=== PATIENT | female | born 1995 ===

== ENCOUNTER → 2021-05-06 09:41 | Outpatient (CLI) | payer OTHER, SELFPAY ==
[2021-05-06 10:55] LABS: HCG Quantitative /Beta subunit 74.2 mIU/mL
== END ==
PROVIDERS: Referring Provider Obstetrics & Gynecology; Visit Provider Obstetrics & Gynecology
DX: N91.2 Amenorrhea, unspecified (principal)
CPT/HCPCS: 36415; 84702

== ENCOUNTER → 2021-05-08 11:02 | Outpatient (CLI) | payer OTHER, SELFPAY ==
[2021-05-08 13:06] LABS: HCG Quantitative /Beta subunit 148.6 mIU/mL
== END ==
PROVIDERS: Referring Provider Obstetrics & Gynecology; Visit Provider Obstetrics & Gynecology
DX: N91.2 Amenorrhea, unspecified (principal)
CPT/HCPCS: 36415; 84702

== ENCOUNTER 2021-05-11 13:12 | Emergency (ER) | payer OTHER, SELFPAY ==
[2021-05-11 13:16] VITALS: BP 145/99; PULSE 89; RESP 16; TEMP 36.6; O2SAT 100; BMI 36.8
--- NOTE | 2021-05-11 13:49 | ED.URI ---
HPI - URI/Sore Throat <NEVAHE Duvall - Last Filed: 05/11/21 17:00> General Chief Complaint: Upper Respiratory Symptoms Stated Complaint: Thinks Sinus infection Time Seen by Provider: 05/11/21 13:41 History of Present Illness HPI Narrative: Patient is a 26-year-old female who presents to the emergency department with 1 week of congestion, itchy eyes, nasal discharge went from yellow to clear, patient states she is 6 weeks today, with concern of having brown vaginal discharge for 2 weeks. She reports that her last HCG was 140, previously 70 for, in her OBGYN told her that her HCG was too low to have a ultrasound done. Patient denies any abdominal pain, she states nausea vomiting sometimes but could be related to her morning sickness, she has a ultrasound scheduled for May 20, patient denies any mucus discharge, or large clots, she has a history of a miscarriage last year, and she has complained of some low back pain. She states she has been taking Tylenol at home as needed for a sore throat, she has also taken Unisom at night to help her sleep. Patient denies any fever, shortness of breath, chest pain, diarrhea or constipation, no recent emesis. Patient is concerned that she might be miscarrying again, and she has notified her OBGYN Dr. Parham about her vaginal discharge and they are aware. Related Data Allergies Allergy/AdvReac Type Severity Reaction Status Date / Time No Known Drug Allergies Allergy Verified 05/11/21 13:42 Review of Systems <NEVAEH Duvall - Last Filed: 05/11/21 17:00> Review of Systems Narrative: General: denies fever, chills Head/Neck: endorses intermittent headache, neck pain Eyes: denies visual changes, eye pain Cardio: denies chest pain, palpitations Respiratory: denies shortness of breath, cough GI: denies abdominal pain, nausea, vomiting, or diarrhea : denies dysuria, hematuria MSK: denies joint pain, muscle weakness Skin: denies rash, itching Neuro: denies numbness, tingling Exam <NEVAEH Duvall - Last Filed: 05/11/21 17:00> Narrative Exam Narrative: Independently reviewed vitals signs and nursing notes. General: Awake, alert, nontoxic, no cardiorespiratory distress Head/Neck: Atraumatic, neck full range of motion Eyes: EOMI, conjunctiva normal Nose: nares patent, mild rhinorrhea Mouth/Throat: moist mucus membranes, posterior pharynx normal, no oral lesions Cardio: Regular rate and rhythm, no peripheral edema Respiratory: respirations unlabored without wheezing, stridor, or rales. No retractions. GI: Abdomen soft, nontender MSK: Moves all extremities, neurovascularly intact Skin: Normal capillary refill, no rash Neuro: Normal speech and cognition, normal gait Initial Vital Signs Initial Vital Signs: Vital Signs Temperature 97.9 F 05/11/21 13:16 Pulse Rate 89 05/11/21 13:16 Respiratory Rate 16 05/11/21 13:16 Blood Pressure 145/99 H 05/11/21 13:16 Pulse Oximetry 100 05/11/21 13:16 <Guero Duong DO - Last Filed: 05/12/21 08:34> Initial Vital Signs Initial Vital Signs: Vital Signs Temperature 97.9 F 05/11/21 13:16 Pulse Rate 89 05/11/21 13:16 Respiratory Rate 16 05/11/21 13:16 Blood Pressure 145/99 H 05/11/21 13:16 Pulse Oximetry 100 05/11/21 13:16 Course <NEVAEH Duvall - Last Filed: 05/11/21 17:00> Orders Ordered: ED Orders 05/11/21 14:25 HCG Quantitative /Beta subunit Stat Vital Signs Vital signs: Vital Signs - 8 hr 05/11/21 13:16 05/11/21 15:58 Temperature 97.9 F Pulse Rate 89 80 Respiratory Rate 16 16 Blood Pressure 145/99 H 138/88 Pulse Oximetry 100 97 <Guero Duong DO - Last Filed: 05/12/21 08:34> Orders Ordered: ED Orders 05/11/21 14:25 HCG Quantitative /Beta subunit Stat Vital Signs Vital signs: Vital Signs - 8 hr 05/11/21 13:16 05/11/21 15:58 Temperature 97.9 F Pulse Rate 89 80 Respiratory Rate 16 16 Blood Pressure 145/99 H 138/88 Pulse Oximetry 100 97 MDM - URI/Sore Throat <NEVAEH Duvall Last Filed: 05/11/21 17:00> Lab Data Labs: Lab Results 05/11/21 Range/Units 14:25 HCG, Quant 327 mIU/mL MDM Narrative Medical decision making narrative: 26-year-old female presents to the emergency department for concern of sinus infection with complaint of nasal congestion, laryngitis, cough, and occasional headaches for 1 week. She has been afebrile, exam is reassuring that this is not a sinus infection at this time, she does not have any tenderness over her sinuses. She does not have a productive cough, she has some postnasal drip with rhinorrhea. She tells me she is approximately 6 weeks but has been having brown vaginal discharge for about 2 weeks. She states her last HCG had gone up appropriately but she does not know if she is having a miscarriage or not. She states she has a upcoming ultrasound on May 20 as she was told by her OB that it was too early to do an ultrasound at 5 weeks. I recheck her hCG today which was 327 today, on 05/08 it was 148.6, on 05/06 it was 74.2. Her hCG seems to be increasing as expected and doubling every 2-3 days. Because patient has a benign abdominal exam, without abdominal pain, without bright red bleeding, without any bloody clot discharge I recommend she follow-up with her OBGYN as scheduled and return to the emergency department for any new or worsening symptoms including abdominal pain, fever, pelvic pain, or any other new concerning symptoms. I also told her if her symptoms persist another 3 or 4 days to return to the emergency department or her PCP for another examination. It appears to be a viral upper respiratory illness at this time without indication for antibiotics. My differential also includes bronchitis, ectopic , miscarriage. Patient is appropriate and amenable to discharge home. Vital signs are stable on repeat examination is unremarkable. Patient has been informed of results. Patient has been given strict return to ER precautions for any new or worsening symptoms. Patient understands to follow up closely with outpatient providers as instructed. Patient understands plan and agrees to discharge home. All questions and concerns answered at this time. <Guero Duong, - Last Filed: 05/12/21 08:34> Lab Data Labs: Lab Results 05/11/21 Range/Units 14:25 HCG, Quant 327 mIU/mL Discharge Plan Departure Patient Disposition: Home Clinical Impression: Vaginal discharge, bloody Upper respiratory infection Qualifiers: URI type: acute laryngitis Qualified Code(s): J04.0 - Acute laryngitis Qualifiers: Weeks of gestation: less than 8 weeks Qualified Code(s): Z3A.01 - Less than 8 weeks gestation of Instructions: Laryngitis, Common Cold Activity Restrictions/Additional Instructions: *You have been diagnosed with and upper respiratory illness which is most likely viral and does not need antibiotics at this time. Your hCG today is 327, on 05/08 it was 148.6, on 05/06/2021 it was 74.2. It appears that it is doubling every 2-3 days as it should. Your brown vaginal discharge for the last 2 weeks is a bit concerning however it is too early to know if this is affecting the or not. Please go to your ultrasound appointment on May 20, and please return to the emergency department if you develop any bright red bleeding, any abdominal pain, a fever, muscle spasms, or a large bloody clot or with your vaginal discharge. I will send a copy of this chart to Dr. Parham so that they can see your results. *What to do: *Please continue to take your regular medications as directed. [ ] New medication prescriptions sent to your pharmacy: [ ] [ ] New medication written as a paper prescription [x ] No new medications given *Please follow up with your primary care provider in 2-3 days, call for an appointment. Let them know you were seen in the Emergency Department and that we ask that you be seen in follow up. We will electronically transmit a record of today's note if your PCP is in our system *If you do not have a primary care provider please contact the [facility] Resource line at [phone]. They will ask some questions about your medical history and help get you set up with a doctor in the community. *Return to Emergency Department if you should have any new, worsening or concerning symptoms, such as [fever greater than 101F, chills, worsening pain, persistent vomiting or other bothersome symptoms] Referrals: Zuhair Parham MD [Physician] - 5-7 days <Guero Duong DO - Last Filed: 05/12/21 08:34> Cosign ED Attending Larsature Attestation: I was immediately available in the department for consultation. This documentation has been reviewed and I agree with assessment and plan. Supervised by Guero Duong DO
[2021-05-11 15:22] LABS: HCG Quantitative /Beta subunit 327 mIU/mL
[2021-05-11 15:58] VITALS: BP 138/88; PULSE 80; RESP 16; O2SAT 97
== END 2021-05-11 15:59 | disposition home or self-care (01) ==
PROVIDERS: Emergency Provider Nurse Practitioner Critical Care Medicine
DX: O26.891 Other specified pregnancy related conditions, first trimester (principal); J04.0 Acute laryngitis; Z3A.01 Less than 8 weeks gestation of pregnancy
CPT/HCPCS: 36415; 84702; 99283

== ENCOUNTER → 2021-05-15 10:54 | Outpatient (CLI) | payer OTHER, SELFPAY ==
[2021-05-15 12:18] LABS: Add Manual Diff / Slide Review NO; Basophils Absolute Auto 0 /uL (0-100); Basophils Percent Auto 0.4 % (0-2); Eosinophils Absolute Auto 100 /uL (0-450); Eosinophils Percent Auto 0.6 % (2-4); Hematocrit 37.7 % (36-46); Hemoglobin 12.7 g/dL (12.0-16.0); Lymphocytes Absolute Auto 2800 /uL (1100-4500); Lymphocytes Percent Auto 30.8 % (25-40); Mean Corpuscular HGB Conc 33.8 % (30-36); Mean Corpuscular Hemoglobin 31.5 PG (26-34); Mean Corpuscular Volume 93.4 fL (80-100); Monocytes Absolute Auto 700 /uL (0-900); Monocytes Percent Auto 7.5 % (3-14); Neutrophils Absolute Auto 5500 /uL (1500-7000); Neutrophils Percent Auto 60.7 % (50-75); Platelet Count 451 X10^3/uL (150-400); Red Blood Cell Count 4.04 X10^6/uL (4.0-5.2); Red Cell Distribution Width 13.4 % (11.6-14.8); White Blood Cell Count 9.1 X10^3/uL (4.5-11.0)
[2021-05-15 12:48] LABS: HCG Quantitative /Beta subunit 398.3 mIU/mL
[2021-05-15 13:14] LABS: Hepatitis B Surface Antigen NEGATIVE s/c (NEGATIVE); Rubella Antibody IgG 10.1 IU/mL (>15)
[2021-05-15 13:20] LABS: HIV 1 & 2 Ab/Ag 4th Gen Combo NEGATIVE (NEGATIVE); Hep C Virus Ab w/Reflex Quant NEGATIVE s/c (NEGATIVE)
[2021-05-16 07:43] LABS: RPR Screen Non Reactive (Non Reactive)
[2021-05-16 08:14] LABS: Varicella IgG Antibody <135 index (Immune >165)
== END ==
PROVIDERS: Referring Provider Obstetrics & Gynecology; Visit Provider Obstetrics & Gynecology
DX: O20.9 Hemorrhage in early pregnancy, unspecified (principal)
CPT/HCPCS: 36415; 80055; 84702; 86787; 86803; 86850; 86900; 86901; 87389

== ENCOUNTER 2021-05-19 11:11 | Emergency (ER) | payer OTHER, SELFPAY ==
[2021-05-19 11:19] VITALS: BP 170/95; PULSE 113; RESP 20; TEMP 36.6; O2SAT 99; BMI 37.0
[2021-05-19 11:29] LABS: Add Manual Diff / Slide Review NO; Basophils Absolute Auto 100 /uL (0-100); Basophils Percent Auto 0.5 % (0-2); Eosinophils Absolute Auto 100 /uL (0-450); Eosinophils Percent Auto 0.5 % (2-4); Hematocrit 36.9 % (36-46); Hemoglobin 12.4 g/dL (12.0-16.0); Lymphocytes Absolute Auto 3100 /uL (1100-4500); Mean Corpuscular HGB Conc 33.7 % (30-36); Mean Corpuscular Hemoglobin 31.1 PG (26-34); Mean Corpuscular Volume 92.3 fL (80-100); Monocytes Absolute Auto 1000 /uL (0-900); Monocytes Percent Auto 8.2 % (3-14); Neutrophils Absolute Auto 8200 /uL (1500-7000); Neutrophils Percent Auto 65.8 % (50-75); Platelet Count 408 X10^3/uL (150-400); Red Cell Distribution Width 13.2 % (11.6-14.8); White Blood Cell Count 12.5 X10^3/uL (4.5-11.0)
--- NOTE | 2021-05-19 11:33 | ED.FEMALEGU ---
HPI - Female Genitourinary General Chief complaint: OB/Uterine Contractions Stated complaint: Possible miscarriage/bleeding/cramping Time Seen by Provider: 05/19/21 11:16 History of Present Illness HPI Narrative: 26-year-old female nonsmoker is a at about 7 weeks who presents with her significant other and a chief complaint of lower pelvic cramping and vaginal bleeding with possible passage of tissue over the past day or 2. She is wearing a pad which she has saturated over the past 3-4 hours. She denies any fever or chills. She has had no leakage of fluid. She is not dizzy nor weak or lightheaded. She has had follow-up with Ob recently and they have been tracking her hCG. Related Data Allergies Allergy/AdvReac Type Severity Reaction Status Date / Time No Known Drug Allergies Allergy Verified 05/11/21 13:42 Review of Systems Review of Systems Narrative: GENERAL: Denies chills, fatigue, malaise, fever, sweats. HEENT: Denies sinus pain, ear pain, sore throat, difficulty swallowing, dizziness. RESPIRATORY: Denies dyspnea, cough, wheezing, hemoptysis, sputum. CARDIOVASCULAR: Denies chest pain, palpitations, orthopnea, edema, GASTROINTESTINAL: Denies nausea, vomiting, abdominal pain, diarrhea, constipation, melena. : See HPI MUSCULOSKELETAL: denies weakness, joint pain, or bony pain SKIN: Denies rash, skin lesions, or other NEUROLOGIC: Denies weakness, headache, numbness, change in speech, confusion, seizures, incoordination. PSYCHIATRIC: No concerning psychosocial issues. 12 point review of systems is negative except for those stated above Patient History Medical History Cervical incompetence during in second trimester delivery, delivered Exam Narrative Exam Narrative: GENERAL: [26] year old patient appears stated age. Well-developed patient, in mild distress. Tearful HEAD: Atraumatic. Normocephalic. EYES: Pupils equal round and reactive. Extraocular motions intact. No scleral icterus. No injection or drainage. ENT: Nose without bleeding, purulent drainage. Throat without erythema, tonsillar hypertrophy or exudate. Airway patent. NECK: Trachea midline. Non tender CARDIOVASCULAR: Regular rate and rhythm without murmurs, gallops, or rubs. RESPIRATORY: Clear to auscultation. Breath sounds equal bilaterally. No wheezes, rales, or rhonchi. GASTROINTESTINAL: Abdomen soft, non-tender, nondistended. EXTREMITIES: No edema or joint tenderness. BACK: Nontender without deformity or crepitance. No flank tenderness. NEURO: AOx3. SKIN: No rash or erythema of visible areas Initial Vital Signs Initial Vital Signs: Vital Signs Temperature 97.8 F 05/19/21 11:19 Pulse Rate 113 H 05/19/21 11:19 Respiratory Rate 20 05/19/21 11:19 Blood Pressure 170/95 H 05/19/21 11:19 Pulse Oximetry 99 05/19/21 11:19 Course Orders Ordered: ED Orders 05/19/21 11:22 Beta HCG, Quant [HCG Quantitative /Beta subunit] Stat Complete Blood Count AUTO DIFF Stat Comprehensive Metabolic Panel Stat 05/19/21 12:00 OB <= 14 weeks fetus Stat Vital Signs Vital signs: Vital Signs - 8 hr 05/19/21 11:19 05/19/21 13:28 Temperature 97.8 F Pulse Rate 113 H 90 Respiratory Rate 20 16 Blood Pressure 170/95 H Pulse Oximetry 99 99 MDM - Female Genitourinary Lab Data Result diagrams: 05/19/21 11:22 05/19/21 11:22 Labs: Lab Results 05/19/21 05/19/21 Range/Units 11:22 11:22 WBC 12.5 H (4.5-11.0) X10^3/uL RBC 4.00 (4.0-5.2) X10^6/uL Hgb 12.4 (12.0-16.0) g/dL Hct 36.9 (36-46) % MCV 92.3 (80-100) fL MCH 31.1 (26-34) PG MCHC 33.7 (30-36) % RDW 13.2 (11.6-14.8) % Plt Count 408 H (150-400) X10^3/uL Neut % (Auto) 65.8 (50-75) % Lymph % (Auto) 25.0 (25-40) % [place] % (Auto) 8.2 (3-14) % Eos % (Auto) 0.5 L (2-4) % Baso % (Auto) 0.5 (0-2) % Neut # (Auto) 8200 H (5383-8533) /uL Lymph # (Auto) 3100 (0890-7691) /uL [place] # (Auto) 1000 H (0-900) /uL Eos # (Auto) 100 (0-450) /uL Baso # (Auto) 100 (0-100) /uL Sodium 138 (137-145) mmol/L Potassium 3.8 (3.4-5.1) mmol/L Chloride 102 (98-107) mmol/L Carbon Dioxide 28 (22-32) mmol/L BUN 8 (7-17) mg/dL Creatinine 0.68 (0.52-1.04) mg/dL Estimated GFR > 60.0 (>60) mL/min BUN/Creatinine Ratio 11.8 (6-22) Glucose 93 (70-100) mg/dL Calcium 9.2 (8.4-10.2) mg/dL Total Bilirubin 0.4 (0.2-1.3) mg/dL AST 21 (14-36) IU/L ALT 16 (<35) IU/L Alkaline Phosphatase 54 (38-126) U/L Total Protein 7.5 (6.3-8.2) g/dL Albumin 4.3 (3.5-5.0) g/dL Globulin 3.2 (1.7-4.1) g/dL Albumin/Globulin Ratio 1.3 (1.0-2.8) HCG, Quant 89.7 mIU/mL Imaging Data US - OB: Radiologist's Impression: [place] [address] Ultrasound Report Signed Patient: Geovanna Powers MR#: [id number] : 1995 Acct:[id number] Age/Sex: 26 / F Date of Service: 05/19/21 Loc: ED Accession Number: [id number] ?? Procedure: US OB <= 14 weeks fetus Ordering Provider: Guero Duong D.O. PROCEDURE:? US OB <= 14 WEEKS FETUS ? INDICATIONS:? , bleeding, cramping ? OUTSIDE/PRIOR DATING DATA:? Last menstrual period (LMP):? March 25, 2021 LMP-based estimated date of delivery (LATIA):? December 30, 2021 First dating scan (date and location):? Not applicable Estimated date of delivery (LATIA) from first dating scan:? Not applicable ? TECHNIQUE:? Real-time scanning was performed of the fetus and maternal pelvic organs, with image documentation.? Endovaginal scanning was also performed to better visualize the fetus and maternal ovaries.? ? COMPARISON:? None. ? FINDINGS:? ? Embryo:? No intrauterine identified.? No gestational sac or yolk sac identified. Heart rate:? Not applicable ? Measurement variability in dating:? +/- 4 weeks by LMP, +/- 7 days by mean sac diameter (use before 6 weeks gestation if crown-rump length not able to be measured), +/- 5 days by crown-rump length (up to 8 weeks 6 days gestation), +/- 7 days by crown-rump length (up to 13 weeks 6 days gestation).? ? Maternal organs:? There is a 1.6 x 1.1 x 1.5 centimeter heterogeneous lesion adjacent to the left margin of the uterus and adjacent to the left ovary.? Right ovary is sonographically normal. ? IMPRESSION:? ? 1. No intrauterine identified.? Recommend correlation with serum beta HCG and short-term follow-up obstetrical ultrasound follow-up.? ? 2. There is a small 1.6 x 1.1 x 1.5 centimeter heterogeneous lesion situated between the left margin of the uterus in the left ovary.? Lesion has nonspecific imaging characteristics may represent subserosal uterine fibroid or early ectopic .? Recommend close clinical observation, correlation with serial beta HCG and short-term obstetrical ultrasound follow-up. ? ? ? Dictated by: Imani Dietz MD, PhD on 05/19/2021 at 11:56 ? ? Approved by: Imani Dietz MD, PhD on 05/19/2021 at 12:08 ? Discharge Plan Departure Patient Disposition: Home Clinical Impression: Threatened miscarriage Instructions: DI for Miscarriage Activity Restrictions/Additional Instructions: *You have been diagnosed with [vaginal bleeding and cramping in . Your history and physical exam along with falling out HCG would suggest this is likely a miscarriage in process. *What to do: *Please continue to take your regular medications as directed. [ ] New medication prescriptions sent to your pharmacy: [ ] [ ] New medication written as a paper prescription [ x] No new medications given *Please follow up with your OB provider in 2-3 days, call for an appointment. Let them know you were seen in the Emergency Department and that we ask that you be seen in follow up. They will need to continue to track your labs and probably repeat an ultrasound. *If you do not have a primary care provider please contact the [facility] Resource line at [phone]. They will ask some questions about your medical history and help get you set up with a doctor in the community. *Return to Emergency Department if you should have any new, worsening or concerning symptoms, such as [fever greater than 101 F, shaking chills, worsening pain, bleeding through more than 1 pad per hour or other bothersome symptoms HCG Levels 05/06 74 05/08 148 05/11 327 05/15 298 05/19 89 Referrals: Zuhair Parham MD [Primary Care Provider] -
[2021-05-19 11:41] LABS: Alanine Aminotransferase 16 IU/L (<35); Albumin 4.3 g/dL (3.5-5.0); Albumin Globulin Ratio 1.3 (1.0-2.8); Alkaline Phosphatase 54 U/L (38-126); Aspartate Aminotransferase 21 IU/L (14-36); BUN Creatinine Ratio 11.8 (6-22); Bilirubin Total 0.4 mg/dL (0.2-1.3); Blood Urea Nitrogen 8 mg/dL (7-17); Calcium 9.2 mg/dL (8.4-10.2); Carbon Dioxide 28 mmol/L (22-32); Chloride 102 mmol/L (98-107); Estimated Glomerular Filt Rate > 60.0 mL/min (>60); Globulin 3.2 g/dL (1.7-4.1); Glucose 93 mg/dL (70-100); HEMOLYSIS < 15 (0-50); Potassium 3.8 mmol/L (3.4-5.1); Sodium 138 mmol/L (137-145); Total Protein 7.5 g/dL (6.3-8.2)
[2021-05-19 11:58] LABS: HCG Quantitative /Beta subunit 89.7 mIU/mL
--- NOTE | 2021-05-19 12:00 | DI.US.S_ITS ---
PROCEDURE: US OB <= 14 WEEKS FETUS INDICATIONS: , bleeding, cramping OUTSIDE/PRIOR DATING DATA: Last menstrual period (LMP): March 25, 2021 LMP-based estimated date of delivery (LATIA): December 30, 2021 First dating scan (date and location): Not applicable Estimated date of delivery (LATIA) from first dating scan: Not applicable TECHNIQUE: Real-time scanning was performed of the fetus and maternal pelvic organs, with image documentation. Endovaginal scanning was also performed to better visualize the fetus and maternal ovaries. COMPARISON: None. FINDINGS: Embryo: No intrauterine identified. No gestational sac or yolk sac identified. Heart rate: Not applicable Measurement variability in dating: +/- 4 weeks by LMP, +/- 7 days by mean sac diameter (use before 6 weeks gestation if crown-rump length not able to be measured), +/- 5 days by crown-rump length (up to 8 weeks 6 days gestation), +/- 7 days by crown-rump length (up to 13 weeks 6 days gestation). Maternal organs: There is a 1.6 x 1.1 x 1.5 centimeter heterogeneous lesion adjacent to the left margin of the uterus and adjacent to the left ovary. Right ovary is sonographically normal. IMPRESSION: 1. No intrauterine identified. Recommend correlation with serum beta HCG and short-term follow-up obstetrical ultrasound follow-up. 2. There is a small 1.6 x 1.1 x 1.5 centimeter heterogeneous lesion situated between the left margin of the uterus in the left ovary. Lesion has nonspecific imaging characteristics may represent subserosal uterine fibroid or early ectopic . Recommend close clinical observation, correlation with serial beta HCG and short-term obstetrical ultrasound follow-up. Dictated by: Imani Dietz MD, PhD on 05/19/2021 at 11:56 Approved by: Imani Dietz MD, PhD on 05/19/2021 at 12:08
[2021-05-19 13:28] VITALS: PULSE 90; RESP 16; O2SAT 99
== END 2021-05-19 13:30 | disposition home or self-care (01) ==
PROVIDERS: Emergency Provider Emergency Medicine; PCP Obstetrics & Gynecology
DX: O20.0 Threatened abortion (principal); Z3A.01 Less than 8 weeks gestation of pregnancy
CPT/HCPCS: 76801; 76817; 80053; 84702; 85025; 99281; 99284

== ENCOUNTER 2021-11-07 10:12 | Emergency (ER) | payer OTHER, SELFPAY ==
[2021-11-07 10:46] VITALS: BP 142/78; PULSE 98; RESP 18; TEMP 36.7; O2SAT 99; BMI 34.9
[2021-11-07] MEDS: hydrOXYzine pamoate 25 MG CAPSULE 50 MG PO (11:12)
[2021-11-07 11:44] LABS: Add Manual Diff / Slide Review NO; Basophils Absolute Auto 0 /uL (0-100); Basophils Percent Auto 0.6 % (0-2); Eosinophils Absolute Auto 100 /uL (0-450); Eosinophils Percent Auto 1.2 % (2-4); Hematocrit 37.7 % (36-46); Hemoglobin 12.9 g/dL (12.0-16.0); Lymphocytes Absolute Auto 1600 /uL (1100-4500); Lymphocytes Percent Auto 32.5 % (25-40); Mean Corpuscular HGB Conc 34.2 % (30-36); Mean Corpuscular Hemoglobin 31.6 PG (26-34); Mean Corpuscular Volume 92.3 fL (80-100); Monocytes Absolute Auto 400 /uL (0-900); Monocytes Percent Auto 7.6 % (3-14); Neutrophils Absolute Auto 2900 /uL (1500-7000); Neutrophils Percent Auto 58.1 % (50-75); Platelet Count 356 X10^3/uL (150-400); Red Blood Cell Count 4.08 X10^6/uL (4.0-5.2); Red Cell Distribution Width 14.4 % (11.6-14.8); White Blood Cell Count 4.9 X10^3/uL (4.5-11.0)
[2021-11-07 11:56] LABS: Acetaminophen < 10 ug/mL (10-30); Alanine Aminotransferase 17 IU/L (<35); Albumin 4.6 g/dL (3.5-5.0); Albumin Globulin Ratio 1.4 (1.0-2.8); Alkaline Phosphatase 50 U/L (38-126); Aspartate Aminotransferase 21 IU/L (14-36); Bilirubin Total 0.4 mg/dL (0.2-1.3); Blood Urea Nitrogen 9 mg/dL (7-17); Carbon Dioxide 27 mmol/L (22-32); Chloride 106 mmol/L (98-107); Estimated Glomerular Filt Rate > 60 mL/min (>60); Ethanol (ETOH) < 10 mg/dL; Globulin 3.3 g/dL (1.7-4.1); Glucose 110 mg/dL (70-100); HEMOLYSIS < 15 (0-50); Potassium 3.4 mmol/L (3.4-5.1); Salicylate < 1.0 mg/dL (<20); Sodium 142 mmol/L (137-145); Total Protein 7.9 g/dL (6.3-8.2)
[2021-11-07 12:12] LABS: Free T4, Direct Thyroxine 1.22 ng/dL (0.78-2.19)
--- NOTE | 2021-11-07 12:19 | ED_ITS ---
HPI - Psych <Geronimo Alicia PA-C - Last Filed: 11/07/21 13:32> General Chief Complaint: Psychiatric Symptoms Stated Complaint: mental health eval Time Seen by Provider: 11/07/21 11:05 Source: patient Mode of arrival: Ambulatory History of Present Illness HPI Narrative: This is a 26-year-old female presents to emergency due to worsening paranoia for ?years?. States that has gotten worse she is causing her to come to the emergency department. States that she see cars across the street and think they are following her. Also states that she is ?thinking irrational thoughts?. Denies SI or HI. States she also occasionally sees things that may not be there as well as hears things. The auditory hallucinations are not commanding her to do anything. Previously diagnosed with major depressive disorder and PTSD. Patient states she is not taking any medications as she ?felt like they were not working?. Denies any chest pain, shortness of breath, abdominal pain, or any other physical symptoms. Related Data Previous Rx's Medication Instructions Recorded hydroxyzine HCl 50 mg tablet 50 mg PO Q6HR 7 Days #28 tab 11/07/21 Allergies Allergy/AdvReac Type Severity Reaction Status Date / Time No Known Drug Allergies Allergy Verified 11/07/21 10:54 Review of Systems <Geronimo Alicia PA-C - Last Filed: 11/07/21 13:32> Review of Systems Narrative: See HPI Patient History <Geronimo Alicia PA-C - Last Filed: 11/07/21 13:32> Medical History Cervical incompetence during in second trimester delivery, delivered Social History Smoking Status: Former smoker Smoking Status: Former smoker alcohol intake frequency: 0-2 drinks per day Substance Use Type: does not use Exam <Geronimo Alicia PA-C - Last Filed: 11/07/21 13:32> Narrative Exam Narrative: GENERAL: 26 year old patient appears stated age. Well-developed patient, in mild distress. HEAD: Atraumatic. Normocephalic. EYES: Pupils equal round and reactive. Extraocular motions intact. No scleral icterus. No injection or drainage. ENT: Nose without bleeding, purulent drainage. Throat without erythema, tonsillar hypertrophy or exudate. Airway patent. NECK: Trachea midline. Non tender CARDIOVASCULAR: Regular rate and rhythm without murmurs, gallops, or rubs. RESPIRATORY: Clear to auscultation. Breath sounds equal bilaterally. No wheezes, rales, or rhonchi. GASTROINTESTINAL: Abdomen soft, non-tender, nondistended. EXTREMITIES: No edema or joint tenderness. BACK: Nontender without deformity or crepitance. No flank tenderness. NEURO: AOx3. SKIN: No rash or erythema of visible areas Initial Vital Signs Initial Vital Signs: Vital Signs Temperature 98.1 F 11/07/21 10:46 Pulse Rate 98 H 11/07/21 10:46 Respiratory Rate 18 11/07/21 10:46 Blood Pressure 142/78 H 11/07/21 10:46 Pulse Oximetry 99 11/07/21 10:46 <Cass Bhatti DO - Last Filed: 11/07/21 19:47> Initial Vital Signs Initial Vital Signs: Vital Signs Temperature 98.1 F 11/07/21 10:46 Pulse Rate 98 H 11/07/21 10:46 Respiratory Rate 18 11/07/21 10:46 Blood Pressure 142/78 H 11/07/21 10:46 Pulse Oximetry 99 11/07/21 10:46 Course <Geronimo Alicia PA-C - Last Filed: 11/07/21 13:32> Orders Ordered: ED Orders 11/07/21 11:02 Consult to [facility] - Electric Meter Reader Stat 11/07/21 11:30 Acetaminophen Stat Complete Blood Count AUTO DIFF Stat Comprehensive Metabolic Panel Stat Ethanol (ETOH) Stat Free T4, Direct Thyroxine Stat Salicylate Stat Thyroid Stimulating Hormone Stat Discontinued Medications Hydroxyzine Pamoate (Hydroxyzine Pamoate 25 Mg Capsule) 50 mg PO NOW ONE Stop: 11/07/21 11:06 Last Admin: 11/07/21 11:12 Dose: 50 mg Documented by: WILBER Vital Signs Vital signs: Vital Signs - 8 hr 11/07/21 13:54 Pulse Rate 78 Respiratory Rate 16 Blood Pressure 112/78 Pulse Oximetry 99 <Cass Bhatti DO - Last Filed: 11/07/21 19:47> Orders Ordered: ED Orders 11/07/21 11:02 Consult to [facility] - Electric Meter Reader Stat 11/07/21 11:30 Acetaminophen Stat Complete Blood Count AUTO DIFF Stat Comprehensive Metabolic Panel Stat Ethanol (ETOH) Stat Free T4, Direct Thyroxine Stat Salicylate Stat Thyroid Stimulating Hormone Stat Discontinued Medications Hydroxyzine Pamoate (Hydroxyzine Pamoate 25 Mg Capsule) 50 mg PO NOW ONE Stop: 11/07/21 11:06 Last Admin: 11/07/21 11:12 Dose: 50 mg Documented by: WILBER Vital Signs Vital signs: Vital Signs - 8 hr 11/07/21 13:54 Pulse Rate 78 Respiratory Rate 16 Blood Pressure 112/78 Pulse Oximetry 99 MDM - Psych <Geronimo Alicia PA-C - Last Filed: 11/07/21 13:32> Lab Data Result diagrams: 11/07/21 11:30 11/07/21 11:30 Labs: Lab Results 11/07/21 11/07/21 11/07/21 Range/Units 11:30 11:30 11:30 WBC 4.9 (4.5-11.0) X10^3/uL RBC 4.08 (4.0-5.2) X10^6/uL Hgb 12.9 (12.0-16.0) g/dL Hct 37.7 (36-46) % MCV 92.3 (80-100) fL MCH 31.6 (26-34) PG MCHC 34.2 (30-36) % RDW 14.4 (11.6-14.8) % Plt Count 356 (150-400) X10^3/uL Neut % (Auto) 58.1 (50-75) % Lymph % (Auto) 32.5 (25-40) % [place] % (Auto) 7.6 (3-14) % Eos % (Auto) 1.2 L (2-4) % Baso % (Auto) 0.6 (0-2) % Neut # (Auto) 2900 (1980-9946) /uL Lymph # (Auto) 1600 (7625-8325) /uL [place] # (Auto) 400 (0-900) /uL Eos # (Auto) 100 (0-450) /uL Baso # (Auto) 0 (0-100) /uL Sodium 142 (137-145) mmol/L Potassium 3.4 (3.4-5.1) mmol/L Chloride 106 (98-107) mmol/L Carbon Dioxide 27 (22-32) mmol/L BUN 9 (7-17) mg/dL Creatinine 0.75 (0.52-1.04) mg/dL Estimated GFR > 60 (>60) mL/min BUN/Creatinine Ratio 12.0 (6-22) Glucose 110 H (70-100) mg/dL Calcium 9.0 (8.4-10.2) mg/dL Total Bilirubin 0.4 (0.2-1.3) mg/dL AST 21 (14-36) IU/L ALT 17 (<35) IU/L Alkaline Phosphatase 50 (38-126) U/L Total Protein 7.9 (6.3-8.2) g/dL Albumin 4.6 (3.5-5.0) g/dL Globulin 3.3 (1.7-4.1) g/dL Albumin/Globulin Ratio 1.4 (1.0-2.8) TSH 1.23 (0.47-4.68) uIU/mL Free T4 1.22 (0.78-2.19) ng/dL Salicylates < 1.0 (<20) mg/dL Acetaminophen < 10 (10-30) ug/mL Ethyl Alcohol < 10 ( - 10) mg/dL MDM Narrative Medical decision making narrative: This is a 26-year-old female presents emergency department for mental health concerns including increased paranoia. Lab work showed no abnormalities and patient did not present with any acute physical complaints. Repeatedly denied SI or HI. Medical social Work was consulted who spoke with the patient and agreed with the plan for discharge with outpatient resources. Hydroxyzine was given to the patient which she states somewhat helped with her symptoms. Patient will be discharged with instructions to follow up with the resources provided outpatient with a prescription for hydroxyzine. <Cass Bhatti, DO - Last Filed: 11/07/21 19:47> Lab Data Labs: Lab Results 11/07/21 11/07/21 11/07/21 Range/Units 11:30 11:30 11:30 WBC 4.9 (4.5-11.0) X10^3/uL RBC 4.08 (4.0-5.2) X10^6/uL Hgb 12.9 (12.0-16.0) g/dL Hct 37.7 (36-46) % MCV 92.3 (80-100) fL MCH 31.6 (26-34) PG MCHC 34.2 (30-36) % RDW 14.4 (11.6-14.8) % Plt Count 356 (150-400) X10^3/uL Neut % (Auto) 58.1 (50-75) % Lymph % (Auto) 32.5 (25-40) % [place] % (Auto) 7.6 (3-14) % Eos % (Auto) 1.2 L (2-4) % Baso % (Auto) 0.6 (0-2) % Neut # (Auto) 2900 (0608-0891) /uL Lymph # (Auto) 1600 (8870-5799) /uL [place] # (Auto) 400 (0-900) /uL Eos # (Auto) 100 (0-450) /uL Baso # (Auto) 0 (0-100) /uL Sodium 142 (137-145) mmol/L Potassium 3.4 (3.4-5.1) mmol/L Chloride 106 (98-107) mmol/L Carbon Dioxide 27 (22-32) mmol/L BUN 9 (7-17) mg/dL Creatinine 0.75 (0.52-1.04) mg/dL Estimated GFR > 60 (>60) mL/min BUN/Creatinine Ratio 12.0 (6-22) Glucose 110 H (70-100) mg/dL Calcium 9.0 (8.4-10.2) mg/dL Total Bilirubin 0.4 (0.2-1.3) mg/dL AST 21 (14-36) IU/L ALT 17 (<35) IU/L Alkaline Phosphatase 50 (38-126) U/L Total Protein 7.9 (6.3-8.2) g/dL Albumin 4.6 (3.5-5.0) g/dL Globulin 3.3 (1.7-4.1) g/dL Albumin/Globulin Ratio 1.4 (1.0-2.8) TSH 1.23 (0.47-4.68) uIU/mL Free T4 1.22 (0.78-2.19) ng/dL Salicylates < 1.0 (<20) mg/dL Acetaminophen < 10 (10-30) ug/mL Ethyl Alcohol < 10 ( - 10) mg/dL Discharge Plan Departure Patient Disposition: Home Clinical Impression: Paranoia Activity Restrictions/Additional Instructions: Thank you for coming to the [facility] Emergency Department today. Your lab work showed no abnormalities in your blood counts, thyroid function, electrolytes, or any other abnormalities. Thank you for coming in today to discuss your mental health. After speaking with social Work we feel comfortable discharging you to follow-up with the resources provided. I am glad your not have any suicidal or homicidal thoughts. Please return directly to the emergency department if you develops these feelings. The hydroxyzine prescribed should help with her symptoms as well. Please take as directed. Prescriptions: New hydroxyzine HCl 50 mg tablet 50 mg PO Q6HR 7 Days Qty: 28 0RF Rx Instructions: Please take 1 tablet every 6 hours as needed for anxiety. <Cass Bhatti, - Last Filed: 11/07/21 19:47> [facility] ED Attending Larsature Attestation: I was immediately available in the department for consultation. Documentation has been reviewed. Case discussed with myself. Agree with current plan.
[2021-11-07 12:26] LABS: Thyroid Stimulating Hormone 1.23 uIU/mL (0.47-4.68)
[2021-11-07 13:54] VITALS: BP 112/78; PULSE 78; RESP 16; O2SAT 99
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
== END 2021-11-07 13:57 | disposition home or self-care (01) ==
PROVIDERS: Emergency Medicine; Emergency Provider Physician Assistant Medical
DX: F22 Delusional disorders (principal)
CPT/HCPCS: 36415; 80053; 80320; 80329; 84439; 84443; 85025; 99283; 99284; G0480

== ENCOUNTER 2022-07-17 11:58 | Emergency (ER) | payer OTHER, SELFPAY ==
[2022-07-17 12:21] VITALS: BP 148/85; PULSE 125; RESP 26; TEMP 37.1; O2SAT 98; BMI 31.6
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
== END 2022-07-17 16:26 | disposition home or self-care (01) ==
PROVIDERS: Emergency Provider Nurse Practitioner Critical Care Medicine
DX: F43.12 Post-traumatic stress disorder, chronic (principal); F41.0 Panic disorder [episodic paroxysmal anxiety]; F32.A Depression, unspecified
CPT/HCPCS: 99281